=== PATIENT | female | born 1950 | race Caucasian/White ===

== ENCOUNTER 2019-10-08 05:48 | Emergency (ER) | payer MEDICARE, OTHER ==
--- NOTE | 2019-10-08 06:22 | EDM.PDOC ---
<Aaron Clay - Last Filed: 10/08/19 10:02> ED HPI GENERAL MEDICAL PROBLEM - General Chief Complaint: Chest Pain Stated Complaint: CHEST PAIN Time Seen by Provider: 10/08/19 06:01 - Related Data Allergies Allergy/AdvReac Type Severity Reaction Status Date / Time codeine Allergy Itching Verified 10/08/19 05:54 hydrocodone Allergy Itching Verified 10/08/19 05:54 Course - Vital Signs Last Recorded V/S: Last Vital Signs Temp 37.3 C 10/08/19 05:54 Pulse 83 10/08/19 05:54 Resp 19 10/08/19 05:54 BP 163/88 H 10/08/19 05:54 Pulse Ox 97 10/08/19 05:54 - Orders/Labs/Meds Labs: Laboratory Tests 10/08/19 10/08/19 10/08/19 Range/Units 06:25 06:25 06:25 WBC 8.70 (3.98-10.04) K/mm3 RBC 4.27 (3.98-5.22) M/mm3 Hgb 13.5 (11.2-15.7) gm/dl Hct 40.9 (34.1-44.9) % MCV 95.8 H (79.4-94.8) fl MCH 31.6 (25.6-32.2) pg MCHC 33.0 (32.2-35.5) g/dl RDW Std Deviation 45.2 (36.4-46.3) fL Plt Count 210 (182-369) K/mm3 MPV 11.4 (9.4-12.3) fl Neutrophils % (Manual) 62 H (40-60) % Band Neutrophils % 0 (0-10) % Lymphocytes % (Manual) 27 (20-40) % Atypical Lymphs % 0 % Monocytes % (Manual) 6 (2-10) % Eosinophils % (Manual) 4 (0.7-5.8) % Basophils % (Manual) 1 (0.1-1.2) Platelet Estimate Adequate RBC Morph Comment Normal D-Dimer, Quantitative 0.66 H (0.19-0.50) mg/L Sodium 143 (136-145) mEq/L Potassium 3.8 (3.5-5.1) mEq/L Chloride 106 (98-107) mEq/L Carbon Dioxide 24 (21-32) mEq/L Anion Gap 16.8 H (5-15) BUN 19 H (7-18) mg/dL Creatinine 0.7 (0.55-1.02) mg/dL Est Cr Clr Drug Dosing 62.74 mL/min Estimated GFR (MDRD) > 60 (>60) mL/min BUN/Creatinine Ratio 27.1 H (14-18) Glucose 118 H (80-115) mg/dL Calcium 9.3 (8.5-10.1) mg/dL Total Bilirubin 0.8 (0.2-1.0) mg/dL AST 17 (15-37) U/L ALT 28 (14-59) U/L Alkaline Phosphatase 80 (46-116) U/L Troponin I < 0.017 (0.00-0.056) ng/mL Total Protein 7.3 (6.4-8.2) g/dl Albumin 3.5 (3.4-5.0) g/dl Globulin 3.8 gm/dL Albumin/Globulin Ratio 0.9 L (1-2) Meds: Medications Discontinued Medications Generic Name Dose Route Start Last Admin Trade Name Freq PRN Reason Stop Dose Admin Sodium Chloride 1,000 mls @ 150 mls/hr 10/08/19 07:00 10/08/19 07:30 Normal Saline IV 150 mls/hr ASDIRECTED JACQUELIN Administration Sodium Chloride 100 mls @ 4 mls/sec 10/08/19 07:13 10/08/19 07:35 Normal Saline IV 10/08/19 07:14 4 mls/sec ONETIME ONE Administration Iopamidol 100 ml 10/08/19 07:13 10/08/19 07:34 Isovue-370 (76%) IVPUSH 10/08/19 07:14 100 ml ONETIME ONE Administration - Re-Assessments/Exams Free Text/Narrative Re-Assessment/Exam: 10/08/19 08:42. Have assumed care from Dr Reeder, I agree with his hx and exam as documented. Trop., other labs normal. CT neg for PE but does show diffuse ground glass appearance both upper lungs and to a lesser amt both lower lungs. She states she has a "chronic cough from chronic bronchitis, as noted as not been ill in any way other than onset of L chest pain that comes and goes early this AM. She has been working at the clinic, Podiatry, will screen her for covid, she will go home and isolate until covid results are back. Departure - Departure Time of Disposition: 09:26 Disposition: Home, Self-Care 01 Condition: Fair Clinical Impression: Atypical chest pain - Discharge Information Instructions: Nonspecific Chest Pain, Adult, [id number], Coronavirus Information 09/16/19 Referrals: Suni Cooney MD [Primary Care Provider] - Forms: ED Department Discharge Additional Instructions: Even though you are asymptomatic for illness because the CT show diffuse ground glass appearance upper lungs and to a lesser amount lower lungs we have screened you for Covid Viral infection. Results should be available either later tomorrow or by sometime . We will call you with results once they become available to us. If you have not heard a report by evening call ED at [phone] to check in with us on that. For now isolate and best if other close family members isolate as well until results come back. Return to ED as needed if symptoms worsening in any way. Sepsis Event Note - Focused Exam Date Exam was Performed: 10/08/19 Time Exam was Performed: 10:02 <Bakari Reeder - Last Filed: 10/09/19 19:39> ED HPI GENERAL MEDICAL PROBLEM - General Source of Information: Reports: Patient History Limitations: Reports: No Limitations - History of Present Illness INITIAL COMMENTS - FREE TEXT/NARRATIVE: Mrs. Díaz is a very pleasant 69-year-old woman with a past medical history significant for hypertension, dyslipidemia, obesity, and obstructive sleep apnea , on nightly CPAP, who now presents to the ED stating that she was woken up at 2 :30 this morning with sudden onset anterior left-sided chest pain that radiated up to the left side of her neck, and across the top of her left shoulder. The pain did NOT radiate to her back or scapula. She describes the sensation as squeezing or gripping in character. The sensation would last for about 30 seconds, then recur about every 2 minutes. Initially it was more of a discomfort, but it became more and more painful. No associated nausea, dyspnea , diaphoresis, or sense of impending doom. No prior similar symptoms. The patient states that she took 2 baby aspirin around 05:30 and that her pain has significantly improved since. She did not have any episodes of pain during my evaluation. Here in the ED, the patient's initial BP is found to be modestly elevated at 163 /88, otherwise, the patient is hemodynamically stable, afebrile, saturating 97% on room air. The patient denies recent fever, chills, sore throat, ear pain, nasal or sinus congestion, cough, dyspnea, chest pain, palpitations, nausea, vomiting, constipation, diarrhea, abdominal pain, urinary symptoms, recent weight gain or weight loss, recent bloody bowel movements or black bowel movements, recent joint aches, headaches, or rashes. The patient's PCP is Dr. Suni Cooney. She received an influenza vaccine this season. Chest Pain Score (Numeric/FACES): 4 Past Medical History HEENT History: Reports: Impaired Vision Other HEENT History: wears glasses Cardiovascular History: Reports: High Cholesterol, Hypertension Respiratory History: Reports: Sleep Apnea (nightly CPAP) Endocrine/Metabolic History: Reports: Obesity/BMI 30+ - Past Surgical History HEENT Surgical History: Reports: Tonsillectomy Female Surgical History: Reports: Hysterectomy (partial), Oophorectomy ( unilateral) Neurological Surgical History: Reports: C-Spine (ACDF) Musculoskeletal Surgical History: Reports: Arthroscopic Knee Social & Family History - Tobacco Use Smoking Status *Q: Never Smoker - Alcohol Use Alcohol Use History: Yes Alcohol Use Frequency: Socially - Recreational Drug Use Recreational Drug Use: No - Living Situation & Occupation Living situation: Reports: , with Spouse Occupation: Employed (RN at [employer]) ED ROS GENERAL - Review of Systems Review Of Systems: Comprehensive ROS is negative, except as noted in HPI. ED EXAM, GENERAL - Physical Exam Exam: See Below Exam Limited By: No Limitations General Appearance: Alert, WD/WN, No Apparent Distress (appears comfortable) Eye Exam: Bilateral Eye: EOMI, Normal Inspection Ears: Normal External Exam, Hearing Grossly Normal Nose: Normal Inspection Throat/Mouth: Normal Inspection, Normal Lips, Normal Voice, No Airway Compromise Head: Atraumatic, Normocephalic Neck: Normal Inspection, Full Range of Motion Respiratory/Chest: No Respiratory Distress, Lungs Clear, Normal Breath Sounds, No Accessory Muscle Use, Chest Non-Tender (including the left chest, left neck, and left upper shoulder) Cardiovascular: Normal Peripheral Pulses, Regular Rate, Rhythm, No Edema, No Gallop, No JVD, No Murmur, No Rub Peripheral Pulses: 4+: Radial (L), Radial (R) GI/Abdominal: Normal Bowel Sounds, Soft, Non-Tender, No Organomegaly, No Distention, No Abnormal Bruit, No Mass (Female) Exam: Deferred Rectal (Female) Exam: Deferred Back Exam: Normal Inspection, Full Range of Motion, NT Extremities: Normal Inspection, Normal Range of Motion, No Pedal Edema, Normal Capillary Refill Neurological: Alert, Oriented, Normal Cognition, No Motor/Sensory Deficits Psychiatric: Normal Affect Skin Exam: Warm, Dry, Intact, Normal Color, No Rash EKG INTERPRETATION EKG Date: 10/08/19 Time: 05:52 Rhythm: NSR Rate (Beats/Min): 78 [place]: Normal P-Wave: Enlarged (likely biatrial) QRS: Normal ST-T: Normal QT: Normal Comparison: NA - No Prior EKG Course - Orders/Labs/Meds Labs: Laboratory Tests 10/08/19 10/08/19 10/08/19 Range/Units 06:25 06:25 06:25 WBC 8.70 (3.98-10.04) K/mm3 RBC 4.27 (3.98-5.22) M/mm3 Hgb 13.5 (11.2-15.7) gm/dl Hct 40.9 (34.1-44.9) % MCV 95.8 H (79.4-94.8) fl MCH 31.6 (25.6-32.2) pg MCHC 33.0 (32.2-35.5) g/dl RDW Std Deviation 45.2 (36.4-46.3) fL Plt Count 210 (182-369) K/mm3 MPV 11.4 (9.4-12.3) fl Neutrophils % (Manual) 62 H (40-60) % Band Neutrophils % 0 (0-10) % Lymphocytes % (Manual) 27 (20-40) % Atypical Lymphs % 0 % Monocytes % (Manual) 6 (2-10) % Eosinophils % (Manual) 4 (0.7-5.8) % Basophils % (Manual) 1 (0.1-1.2) Platelet Estimate Adequate RBC Morph Comment Normal D-Dimer, Quantitative 0.66 H (0.19-0.50) mg/L Sodium 143 (136-145) mEq/L Potassium 3.8 (3.5-5.1) mEq/L Chloride 106 (98-107) mEq/L Carbon Dioxide 24 (21-32) mEq/L Anion Gap 16.8 H (5-15) BUN 19 H (7-18) mg/dL Creatinine 0.7 (0.55-1.02) mg/dL Est Cr Clr Drug Dosing 62.74 mL/min Estimated GFR (MDRD) > 60 (>60) mL/min BUN/Creatinine Ratio 27.1 H (14-18) Glucose 118 H (80-115) mg/dL Calcium 9.3 (8.5-10.1) mg/dL Total Bilirubin 0.8 (0.2-1.0) mg/dL AST 17 (15-37) U/L ALT 28 (14-59) U/L Alkaline Phosphatase 80 (46-116) U/L Troponin I < 0.017 (0.00-0.056) ng/mL Total Protein 7.3 (6.4-8.2) g/dl Albumin 3.5 (3.4-5.0) g/dl Globulin 3.8 gm/dL Albumin/Globulin Ratio 0.9 L (1-2) Meds: Medications Discontinued Medications Generic Name Dose Route Start Last Admin Trade Name Jeffq PRN Reason Stop Dose Admin Sodium Chloride 1,000 mls @ 150 mls/hr 10/08/19 07:00 10/08/19 07:30 Normal Saline IV 150 mls/hr ASDIRECTED JACQUELIN Administration Sodium Chloride 100 mls @ 4 mls/sec 10/08/19 07:13 10/08/19 07:35 Normal Saline IV 10/08/19 07:14 4 mls/sec ONETIME ONE Administration Iopamidol 100 ml 10/08/19 07:13 10/08/19 07:34 Isovue-370 (76%) IVPUSH 10/08/19 07:14 100 ml ONETIME ONE Administration - Re-Assessments/Exams Free Text/Narrative Re-Assessment/Exam: 10/08/19 06:13 The sudden onset nature of the pain, its location, that it arose while the patient was sleeping, and absence of associated symptoms all speak against the patient's pain being anginal. Additionally, her initial ECG shows no ischemic changes. Nevertheless, I have ordered a work-up that includes a troponin, but I want to be sure that the patient is not suffering from a pulmonary embolus, therefore I have added a D-dimer and a chest x-ray. 10/08/19 06:47 Two-view chest radiograph appears to be grossly normal. The cardiac silhouette is within normal limits. No pulmonary vascular congestion. No pleural effusions. No focal infiltrate. No pneumothorax. Formal read per the Radiologist pending. 10/08/19 06:59 The elevated D-dimer level was discussed with the patient. Although it is not substantially elevated, I still recommended a CT angiogram of the chest to evaluate for a PE or any other abnormality that may be able to explain the patient's unusual presentation. The patient agreed. I have therefore ordered a CT angiogram along with IV fluid. Case discussed with Dr. Dahiana Clay, and care of the patient turned over to him at this time for change of shift. Sepsis Event Note - Evaluation Sepsis Screening Result: No Definite Risk - Focused Exam Date Exam was Performed: 10/09/19 Time Exam was Performed: 19:38
[2019-10-08] MEDS ORDERED: Sodium Chloride 0.9% 1,000 ML IV SCH (07:00)
[2019-10-08] MEDS ORDERED: Iopamidol 755 Mg/ML 100 ML Bottle IVPUSH ONE (07:13)
[2019-10-08] MEDS ORDERED: Sodium Chloride 0.9% 100 ML IV ONE (07:13)
--- NOTE | 2019-10-08 07:51 | CT ---
CT chest Technique: Multiple axial sections were obtained from above the lung apices inferiorly through the lung bases. Intravenous contrast was utilized. Study has been performed as a pulmonary angiogram protocol. Comparison: Prior chest CT study of 04/25/13. Findings: Pulmonary arteries are fairly well opacified. No filling defects are seen to indicate pulmonary embolism. Mitral annulus calcification is seen. Visualized upper abdominal structures shows a right renal cyst. Diffuse groundglass appearance noted within both upper lungs as well as lesser groundglass appearance within both lower lungs. Small subpleural nodule is identified within the approximate superior segment of the right lower lung measuring about 5 mm in size. Visualized lungs otherwise are clear. Bone window settings were reviewed which appear within normal limits for the patient's age. Impression: 1. No findings of pulmonary embolism. 2. Diffuse groundglass appearance throughout both lungs suggesting the possibility of diffuse bronchiolitis, viral infection cannot be excluded. 3. 5 mm subpleural nodule within the approximate superior segment of the right lower lung believed to be present on prior CT exam and therefore incidental. Diagnostic code #3 This report was dictated in MDT
--- NOTE | 2019-10-08 08:37 | CR ---
Chest: 2 views of the chest were obtained. Comparison: No prior chest imaging. Heart size and mediastinum are normal. Lungs are clear with no acute parenchymal change. Subsequent groundglass appearance within both lungs noted on subsequent chest CT is poorly identified on the plain film study. Bony structures appear within normal limits for the patient's age. There is evidence of prior cervical spine surgery. Impression: 1. Nothing acute is seen on 2 view chest x-ray. 2. Subsequent groundglass appearance (on subsequent chest CT) on both sides of the chest is poorly seen on current chest x-ray. Diagnostic code #2 This report was dictated in MDT
== END 2019-10-08 10:10 | disposition home or self-care (01) ==
LOC: JD.ED 05:48
DX: R07.89 Other chest pain (principal); Z20.828 Contact with and (suspected) exposure to other viral communicable diseases
CPT/HCPCS: 36415; 71046; 71275; 80053; 84484; 85007; 85027; 85379; 93005; 96360; 96361; 99285; J7030; J7050; Q9967; U0002; 93010; 99283

== ENCOUNTER 2023-11-10 12:50 | Emergency (ER) | payer MEDICARE, OTHER | END 2023-11-10 16:00 | disposition home or self-care (01) | LOC: JD.ED 12:50 | DX: S02.5XXA Fracture of tooth (traumatic), initial encounter for closed fracture (principal); S09.93XA Unspecified injury of face, initial encounter; I10 Essential (primary) hypertension; E78.00 Pure hypercholesterolemia, unspecified; E66.9 Obesity, unspecified; Z79.899 Other long term (current) drug therapy; Z88.5 Allergy status to narcotic agent; Z88.1 Allergy status to other antibiotic agents; W01.198A Fall on same level from slipping, tripping and stumbling with subsequent striking against other object, initial encounter | CPT/HCPCS: 70486; 70486-26; 99283 ==